=== PATIENT | female | born 1960 | race Caucasian/White ===

== ENCOUNTER 2017-05-05 08:16 | Outpatient (CLI) | payer BC, OTHER ==
--- NOTE | 2017-05-05 08:30 | RAD ---
LUMBAR SPINE 3 VIEWS: HISTORY: Low back pain. FINDINGS: Lateral views include neutral, flexion, and extension positioning. Vertebral body heights are maint ained. There is disk space narrowing and 0.2 mm spondylolisthesis at the L4-5 level without signifi cant translational motion upon flexion or extension. Osteophytosis is present throughout the lower facets. IMPRESSION: Lower lumbar spondylosis. POS: GILMA
== END 2017-05-05 08:17 | disposition home or self-care (01) ==
LOC: TBSIIMAG 08:16
PROVIDERS: ATTEND Anesthesiology Pain Medicine
DX: M43.16 Spondylolisthesis, lumbar region (principal); M47.816 Spondylosis without myelopathy or radiculopathy, lumbar region
CPT/HCPCS: 72100

== ENCOUNTER 2017-05-11 09:33 | Outpatient (CLI) | payer BC, OTHER | END 2017-05-11 09:34 | disposition home or self-care (01) | LOC: LABBT 09:33 | PROVIDERS: ATTEND Neurological Surgery | DX: Z01.818 Encounter for other preprocedural examination (principal); M54.16 Radiculopathy, lumbar region ==

== ENCOUNTER 2017-05-18 06:50 | Day surgery (SDC) | payer BC, OTHER ==
[2017-05-11 09:50] VITALS: BMI 22.3
--- NOTE | 2017-05-17 20:37 | HP ---
HISTORY OF PRESENT ILLNESS: Ms. Day is a pleasant 56-year-old woman, who presents for evaluation of acute onset right lower extremity L5 pain that began seemingly out of nowhere a few weeks ago. She denies any left-sided pain. She had one epidural steroid injection with Dr. Machuca, which seems to be helping; however, her lateral right foot is numb and this has not changed. MRI from the [facility] reveals a synovial cyst at L4-L5 as well as slip and disk herniation at the same level. The slip is stable on dynamic films. She has reached a point where she wants this definitively treated if possible. PAST SURGICAL HISTORY: Includes hysterectomy and ACDF. CURRENT MEDICATIONS: Cymbalta, Prevacid, estrogen, and Adderall. ALLERGIES: ASPIRIN. PHYSICAL EXAMINATION: GENERAL: The patient is alert and oriented x3. NEUROLOGIC: Gait is significantly antalgic. EXTREMITIES: Lower extremity, sensory disturbance to the lateral right foot. Positive straight leg raise on the right. ASSESSMENT: Lumbar radiculopathy. PLAN: Discussed right L4 diskectomy and decompression. Discussed with Dr. Saldivar, who also met with the patient and advocated for the same. He explained to the patient the risks, benefits, and alternatives to the procedure. The patient expressed understanding and would like to move forward with surgery as discussed. I do believe the patient is mentally competent and capable of making medical decisions for herself and we will move forward with surgery as planned. Tommie Araiza PA-C dictating for Dr. Saldivar. MARTA
[2017-05-18] MEDS ORDERED: Scopolamine 1.5 mg/72 hour Patch ONE (07:27)
[2017-05-18] MEDS ORDERED: Midazolam HCl 2 mg/2 ml Vial ONE ×2 (07:27→08:46)
[2017-05-18] MEDS ORDERED: Fentanyl 100 MCG/2 ML VIAL ONE ×4 (08:46→11:35)
[2017-05-18] MEDS ORDERED: Thrombin 5000 UNITS/5 ML VIAL ONE (08:50)
[2017-05-18] MEDS ORDERED: Bupivacaine HCl 0.5%/Epinephrine 1:200,000/PF 30 ml Vial ONE (08:50)
[2017-05-18] MEDS ORDERED: PHENYLEPHRINE-NS 100 MCG/ML 10 ML SYRINGE ONE (09:06)
[2017-05-18] MEDS ORDERED: Glycopyrrolate 0.2 MG/ML 5 ML SYRINGE ONE (09:06)
[2017-05-18] MEDS ORDERED: Lidocaine 2% PF 10 ML AMP (For Epidural Use) ONE (09:06)
[2017-05-18] MEDS ORDERED: Propofol 200 MG/20 ML VIAL ONE (09:06)
[2017-05-18] MEDS ORDERED: ePHEDrine/0.9% NaCl/PF SYRINGE 50 mg/10 ml ONE (09:06)
[2017-05-18] MEDS ORDERED: Ondansetron HCl/PF 4 MG/2 ML Vial ONE (09:06)
[2017-05-18] MEDS ORDERED: Acetaminophen/Codeine 30-300mg Tablet ONE (12:31)
--- NOTE | 2017-05-18 13:52 | OP ---
DATE OF PROCEDURE: 05/08/2017 SURGEON: Antonio Saldivar M.D. FIRER RETORT: Tommie Araiza PA-C INDICATION: Pain. DIAGNOSIS: Lumbar radiculopathy. PROCEDURE: Right L4-5 hemilaminectomy, medial facetectomy, synovial cyst resection. ANESTHESIA: General. TECHNIQUE: The patient was brought into the operating room and placed under general anesthesia. Sh e was flipped from a supine to a prone position on the operating room table. A linear incision was planned at the L4-L5 segment. After prepping and draping and after an appropriate operative pause, the incision was created. Soft tissues were swept away from midline. A self-retaining retractor wa s placed in the wound for optimal exposure. After confirming the appropriate level with C-arm fluor oscopy, a high-speed cutting drill bit as well as 2, 3 and 4 mm Kerrisons were used to perform a rowell inectomy on the inferior aspect of L4 and superior aspect of L5 on the right. The descending L5 ner ve root was identified and was densely adherent to a large cyst which appeared to be consistent with a synovial cyst, although there did appear to be dark potentially hemorrhagic elements within it. The cyst was removed and sent for pathologic analysis. The wound was then irrigated. Hemostasis wa s maintained throughout. The wound was then closed in anatomic layers and a pressure dressing was a pplied. There were no known procedural complications.
== END 2017-05-18 12:52 | disposition home or self-care (01) ==
LOC: SDC 06:50
PROVIDERS: ATTEND Neurological Surgery
PROC: 0ST20ZZ Resection of Lumbar Vertebral Disc, Open Approach (ICD-10-PCS; principal; 2017-05-18)
DX: M54.16 Radiculopathy, lumbar region (principal); Z79.899 Other long term (current) drug therapy; Z88.1 Allergy status to other antibiotic agents; Z98.1 Arthrodesis status; Z90.710 Acquired absence of both cervix and uterus
CPT/HCPCS: 76001; 88304; 96374; J0670; J2001; J2250; J2405; J2704; J3010